=== PATIENT | female | born 1955 | race Caucasian/White ===

== ENCOUNTER 2024-06-11 09:50 | Emergency (ER) | payer MEDICARE ==
[~2024-06-11] VITALS: Ht 165.1 cm; Wt 92.0 kg
[~2024-06-11 09:50] MED LIST: CYCLOBENZAPRINE10 MG PO; FLUOXETINE HCL20 MG PO; LISINOPRIL-HCT1 EACH PO; NORCO 5-325 TA1 EACH PO
[2024-06-11] MEDS ORDERED: LISINOPRIL20 MG PO (09:59)
[2024-06-11] MEDS ORDERED: ASPIRIN 81 MG CHEW PO ONE (10:00)
[2024-06-11 10:12] LABS: BASOPHILS 1.3 % (0-2); EOSINOPHILS 1.8 % (0-6); HEMOGLOBIN 14.2 g/dL (12.0-18.0); LYMPHOCYTES 38.1 % (24-44); MCH 32.5 (27-36); MCHC 35.6 g/dl (30-36); MCV 91.4 fl (81-99); MONOCYTES 8.4 % (0-12); NEUTROPHILS 50.4 % (39-80); PLATELET COUNT 227 K/uL (140-440); RBC 4.38 M/ul (4.3-5.7); RDW 12.7 (10.5-15.0)
[2024-06-11 10:23] LABS: ALBUMIN 3.9 g/dL (3.4-5.0); ALBUMIN/GLOBULIN RATIO 1.3 (1.1-2.4); ANION GAP 11.7 (7-21); BILIRUBIN, TOTAL 0.6 ng/dL (0.2-1.0); BUN/CREATININE RATIO 16.48 (6.0-28.6); CALCIUM 9.2 mg/dL (8.5-10.1); CREATININE, SERUM 0.91 mg/dL (0.55-1.02); MAGNESIUM 1.9 mg/dL (1.8-2.4); POTASSIUM 3.7 mmol/L (3.5-5.1); PROTEIN, TOTAL 6.9 g/dL (6.4-8.2)
[2024-06-11 12:18] VITALS: BP 145/99
--- NOTE | 2024-06-11 16:17 | EKG ---
[facility] [address] [facility] [place] [address] Signed Normal sinus rhythm with sinus arrhythmia Normal ECG No previous ECGs available Confirmed by Eloisa Jovel MD ([id number]) on 06/11/2024 4:17:43 PM Electronically Signed By: ELOISA JOVEL MD 06/11/24 1617 PATIENT NAME: IGOR CHAVES Electrocardiogram DATE OF : 57 PHYSICIAN: ELOISA JOVEL MD REPORT #: [id number] REPORT IS CONFIDENTIAL AND NOT TO BE RELEASED WITHOUT AUTHORIZATION
== END 2024-06-11 12:15 | disposition home or self-care (01) ==
LOC: ED 09:50
PROVIDERS: Emergency Medicine
DX: R07.9 Chest pain, unspecified (principal); I10 Essential (primary) hypertension; Z79.899 Other long term (current) drug therapy; Z87.891 Personal history of nicotine dependence; Z88.0 Allergy status to penicillin
CPT/HCPCS: 36415; 71045; 80053; 83735; 84484; 85025; 85379; 93005; 93010; 99285-25; A9270